=== PATIENT | male | born 1950 | race Two or more races ===

== ENCOUNTER 2018-06-22 12:19 | Outpatient (CLI) | payer OTHER ==
[~2018-06-22 12:19] MED LIST: CIPRO750 MG PO; METHYLPRED4 MG/DOSE- PO
== END 2018-06-22 12:22 | disposition home or self-care (01) ==
LOC: RAD 12:19
DX: J44.1 Chronic obstructive pulmonary disease with (acute) exacerbation (principal)

== ENCOUNTER 2020-04-12 12:29 | Emergency (ER) | payer OTHER ==
[~2020-04-12] VITALS: Ht 175.3 cm; Wt 96.2 kg
== END 2020-04-12 15:55 | disposition home or self-care (01) ==
LOC: ER 12:29
DX: B34.9 Viral infection, unspecified (principal)

== ENCOUNTER 2020-06-29 15:02 | Outpatient (CLI) | payer OTHER | END 2020-06-29 15:09 | disposition home or self-care (01) | LOC: RAD 15:02 | PROVIDERS: ATTEND Orthopaedic Surgery | DX: M19.042 Primary osteoarthritis, left hand (principal); M79.642 Pain in left hand ==

== ENCOUNTER 2023-12-08 07:06 | Outpatient (CLI) | payer OTHER | END 2023-12-08 07:12 | disposition home or self-care (01) | LOC: NUCLEAR 07:06 | PROVIDERS: ATTEND Internal Medicine | DX: R07.9 Chest pain, unspecified (principal) | CPT/HCPCS: 78452; 93017; A9500 ==